=== PATIENT | female | born 1995 | race Two or more races ===

== ENCOUNTER 2017-11-26 20:08 | Emergency (ER) | payer OTHER ==
[2017-11-26 20:27] VITALS: TEMP 97.9
[2017-11-26] MEDS ORDERED: ONDANSETRON 4 MG/2 ML VIAL IVP ONE (20:28)
[2017-11-26] MEDS ORDERED: NS 1,000 ML IV ONE ×2 (20:33→21:58)
--- NOTE | 2017-11-26 20:34 | EDPHY ---
H & P Time Seen by Provider: 11/26/17 20:11 HPI/ROS: 22 yo female presents complaining right-sided abdominal pain. She states that about 10 days ago she began having diarrhea, and earlier this week she went to an urgent care where she was diagnosed with urinary tract infection started on Bactrim. She states over the last 2 to 3 days she has noticed right-sided abdominal pain. No vaginal bleeding no vaginal discharge She takes control., does not believe she is currently Review of systems General no fever no chills no weakness HEENT no eye pain no eye discharge. No eye redness, no sore throat Respiratory no cough, no shortness of breath Cardiac no chest pain, no peripheral edema GI positive abdominal pain, positive diarrhea no constipation, no nausea, no vomiting no flank pain, no hematuria, no dysuria Musculoskeletal no myalgias, no joint pain Heme no easy bruising, no easy bleeding Endo no polyuria, no polydipsia Skin no rashes, no pruritus Neuro no syncope, no dizziness, no headaches Psych is no suicidal ideation, no homicidal ideation Past Medical/Surgical History: None Social History: Denies alcohol or drug use, no tobacco use Smoking Status: Never smoked Physical Exam: 22-year-old female alert and oriented in moderate distress secondary to nausea HEENT atraumatic normocephalic, extraocular muscles intact, anicteric Oropharynx negative for erythema negative exudate, tolerating her own secretions Neck supple no meningismus Lungs clear to auscultation bilaterally Heart regular rate and rhythm without murmur rub or gallop Abdomen nondistended normoactive bowel sounds, soft, mild tenderness to palpation in right middle and right lower quadrant No guarding no rebound no Rovsing's Back no CVA tenderness, no step-offs, no spinal tenderness Extremities no cyanosis clubbing or edema Neuro alert and oriented, no focal deficits Constitutional: Initial Vital Signs Temperature (C) 36.6 C 11/26/17 20:24 Heart Rate 96 11/26/17 20:24 Respiratory Rate 16 11/26/17 20:24 Blood Pressure 124/70 H 11/26/17 20:24 O2 Sat (%) 98 11/26/17 20:24 O2 Delivery Mode Room Air Allergies/Adverse Reactions: No Known Allergies Allergy (Verified 11/26/17 20:23) Home Medications: Medication Instructions Recorded Miscellaneous Medical Supply [NO 1 ea MISC AD 03/24/13 HOME MEDS] Bactrim DS 11/26/17 Medical Decision Making - Diagnostics Imaging Results: Imaging Impressions Abdomen CT 11/26/17 21:10 Impression: Normal study including the appendix. Results called to Dr. Francois at 10:00 PM. General information for patients regarding this examination can be found at [email or web address]. If you have questions or comments about this report, please contact me at (hospital) or [phone] (cell). ED Course/Re-evaluation: Patient seen and evaluated for right-sided abdominal pain. Labs CBC within normal limits no elevation of white blood cell count CMP electrolytes normal LFTs normal Lipase normal Qualitative serum negative Urinalysis neg nitrate, 1-3 wbc mucous and bacteria present, will culture CT scan Negative for appendicitis A few scattered lymph nodes suggestive of mesenteric adenitis, but not localized to the right lower quadrant Impression Mesenteric adenitis Constipation Dehydration Plan Patient given 2 L normal saline, Zofran, morphine while in the emergency department with marked relief of pain Will discharge home with ondansetron Advise rest, plenty of fluids, ibuprofen or acetaminophen as needed for pain ondansetron for nausea Advise follow up with primary care physician next week Return as needed for worsening symptoms Differential Diagnosis: Appendicitis, enteritis, gastroenteritis, constipation, mesenteric adenitis - Data Points Laboratory Results: Laboratory Results 11/26/17 20:30 11/26/17 20:30 11/26/17 11/26/17 11/26/17 22:05 20:30 20:30 WBC RBC Hgb Hct MCV MCH MCHC RDW Plt Count MPV Neut % (Auto) Lymph % (Auto) [place] % (Auto) Eos % (Auto) Baso % (Auto) Nucleat RBC Rel Count Absolute Neuts (auto) Absolute Lymphs (auto) Absolute Monos (auto) Absolute Eos (auto) Absolute Basos (auto) Absolute Nucleated RBC Immature Gran % Immature Gran # Sodium 140 mEq/L mEq/L (135-145) Potassium 3.9 mEq/L mEq/L (3.5-5.2) Chloride 103 mEq/L mEq/L (97-110) Carbon Dioxide 20 mEq/l L mEq/l (22-31) Anion Gap 17 mEq/L H mEq/L (8-16) BUN 7 mg/dL mg/dL (7-23) Creatinine 0.8 mg/dL mg/dL (0.6-1.0) Estimated GFR > 60 Glucose 100 mg/dL mg/dL (70-100) Calcium 9.2 mg/dL mg/dL (8.5-10.4) Total Bilirubin 0.1 mg/dL mg/dL (0.1-1.4) AST 19 IU/L IU/L (14-46) ALT 34 IU/L IU/L (9-52) Alkaline Phosphatase 83 IU/L IU/L (38-126) Total Protein 7.5 g/dL g/dL (6.3-8.2) Albumin 3.9 g/dL g/dL (3.5-5.0) Lipase 140 IU/L IU/L (23-300) Beta HCG, Qual NEGATIVE Urine Color YELLOW Urine Appearance CLEAR Urine pH 6.0 (5.0-7.5) Ur Specific [place] 1.010 (1.002-1.030) Urine Protein NEGATIVE (NEGATIVE) Urine Ketones NEGATIVE (NEGATIVE) Urine Blood NEGATIVE (NEGATIVE) Urine Nitrate NEGATIVE (NEGATIVE) Urine Bilirubin NEGATIVE (NEGATIVE) Urine Urobilinogen 0.2 EU EU (0.2-1.0) Ur Leukocyte Esterase 1+ H (NEGATIVE) Urine RBC 0-1 /hpf /hpf (0-3) Urine WBC 1-3 /hpf /hpf (0-3) Ur Epithelial Cells 3+ /lpf H /lpf (NONE-1+) Urine Bacteria 2+ /hpf H /hpf (NONE SEEN) Urine Mucus 3+ /lpf H /lpf (NONE-1+) Urine Glucose NEGATIVE (NEGATIVE) 11/26/17 20:30 WBC 8.45 10^3/uL 10^3/uL (3.80-9.50) RBC 4.76 10^6/uL 10^6/uL (4.18-5.33) Hgb 13.5 g/dL g/dL (12.6-16.3) Hct 40.3 % % (38.0-47.0) MCV 84.7 fL fL (81.5-99.8) MCH 28.4 pg pg (27.9-34.1) MCHC 33.5 g/dL g/dL (32.4-36.7) RDW 12.9 % % (11.5-15.2) Plt Count 303 10^3/uL 10^3/uL (150-400) MPV 9.9 fL fL (8.7-11.7) Neut % (Auto) 45.6 % % (39.3-74.2) Lymph % (Auto) 46.0 % H % (15.0-45.0) [place] % (Auto) 5.7 % % (4.5-13.0) Eos % (Auto) 2.4 % % (0.6-7.6) Baso % (Auto) 0.2 % L % (0.3-1.7) Nucleat RBC Rel Count 0.0 % % (0.0-0.2) Absolute Neuts (auto) 3.85 10^3/uL 10^3/uL (1.70-6.50) Absolute Lymphs (auto) 3.89 10^3/uL H 10^3/uL (1.00-3.00) Absolute Monos (auto) 0.48 10^3/uL 10^3/uL (0.30-0.80) Absolute Eos (auto) 0.20 10^3/uL 10^3/uL (0.03-0.40) Absolute Basos (auto) 0.02 10^3/uL 10^3/uL (0.02-0.10) Absolute Nucleated RBC 0.00 10^3/uL 10^3/uL (0-0.01) Immature Gran % 0.1 % % (0.0-1.1) Immature Gran # 0.01 10^3/uL 10^3/uL (0.00-0.10) Sodium Potassium Chloride Carbon Dioxide Anion Gap BUN Creatinine Estimated GFR Glucose Calcium Total Bilirubin AST ALT Alkaline Phosphatase Total Protein Albumin Lipase Beta HCG, Qual Urine Color Urine Appearance Urine pH Ur Specific [place] Urine Protein Urine Ketones Urine Blood Urine Nitrate Urine Bilirubin Urine Urobilinogen Ur Leukocyte Esterase Urine RBC Urine WBC Ur Epithelial Cells Urine Bacteria Urine Mucus Urine Glucose Medications Given: Discontinued Medications Sodium Chloride (Ns) 1,000 mls @ 0 mls/hr IV ONCE ONE PRN Reason: Wide Open Stop: 11/26/17 20:34 Last Admin: 11/26/17 20:48 Dose: 1,000 mls Sodium Chloride (Ns) 1,000 mls @ 0 mls/hr IV ONCE ONE PRN Reason: Wide Open Stop: 11/26/17 21:59 Last Admin: 11/26/17 22:05 Dose: 1,000 mls Morphine Sulfate (Morphine) 4 mg IVP EDNOW ONE Stop: 11/26/17 20:34 Last Admin: 11/26/17 20:42 Dose: 4 mg Ondansetron HCl (Zofran) 4 mg IVP EDNOW ONE Stop: 11/26/17 20:29 Last Admin: 11/26/17 20:32 Dose: 4 mg Departure - Departure Disposition: Home, Routine, Self-Care Clinical Impression: Abdominal pain, Mesenteric adenitis Condition: Good Instructions: Constipation (ED), Mesenteric Adenitis (ED) Referrals: Vicky Corbin MD [Primary Care Provider] - As per Instructions
[2017-11-26 20:46] LABS: PLATELET COUNT 303 10^3/uL (150-400)
[2017-11-26] MEDS ORDERED: IOPAMIDOL (ISOVUE-300) 100 ML BTL ONE (21:24)
[2017-11-26] MEDS ORDERED: ONDANSETRON 4MG PREPACK#2 BTL TAKEHOME ONE (22:26)
[2017-11-26] MEDS ORDERED: KETOROLAC 30 MG/1 ML SDV ONE (22:31)
[2017-11-26] MEDS ORDERED: KETOROLAC 30 MG/1 ML SDV IVP ONE (22:31)
[2017-11-26 22:46] VITALS: BP 132/72; PULSE 80; RESP 12; O2SAT 95
== END 2017-11-26 22:44 | disposition home or self-care (01) ==
LOC: CED 20:08
DX: I88.0 Nonspecific mesenteric lymphadenitis (principal); R19.7 Diarrhea, unspecified
CPT/HCPCS: 74177-PO; 80053-PO; 81003-PO; 81015-PO; 83690-PO; 84703-PO; 85025-PO; 96374; J1885; J2270; J2405; Q9967